=== PATIENT | female | born 1995 | race Two or more races ===

== ENCOUNTER 2017-01-20 12:38 | Emergency (ER) | payer OTHER ==
[2017-01-20 12:43] VITALS: RESP 18
--- NOTE | 2017-01-20 13:41 | EDPHY ---
HPI/HX/ROS/PE/MDM Narrative: CHIEF COMPLAINT: Cough, painful breathing HISTORY OF PRESENT ILLNESS: This patient is a 21 year old female complaining of left-sided chest pain onset yesterday afternoon. She has had a cold over the last week with cough, runny nose, and sore throat. She did have a fever for a few days, but this has since resolved. She has been coughing frequently, severely enough to vomit. Yesterday , she developed a sharp pain in her ribs just below her left breast. This is worse with cough or deep inspiration. She feels best leaning forward. She was evaluated at [facility] near the beginning of her illness and prescribed an inhaler, which has not meaningfully resolved her symptoms. She has taken 200mg Ibuprofen every 4 hours for pain relief. She denies personal or family history of blood clots. Nonsmoker. On oral contraceptives. No prolonged travel recently. She did receive a flu vaccine this year. No current fever, chills, shortness of breath, palpitations, abdominal pain, vomiting, diarrhea, urinary complaints, headache, lightheadedness. REVIEW OF SYSTEMS: Aside from elements discussed in the HPI, a comprehensive 10-point review of systems was reviewed and is negative. PAST MEDICAL HISTORY: Tonsillectomy. SOCIAL HISTORY: Student at [employer]. Nonsmoker. Friend at bedside. VITAL SIGNS: Reviewed by me. Heart rate 108, respiratory rate 18, O2 sat 100% GENERAL: Well-developed, well-nourished, resting comfortably in no respiratory distress. Occasional dry cough. HEENT: Atraumatic. Eyes: No icterus, no injection. Mouth: moist mucous membranes. Pharyngeal erythema. No lesions. Neck: supple with no adenopathy. LUNGS: Crackles/coarse breath sounds on left base. No wheezes. Faint crackles clear with deep inspiration. CHEST: Well localized area of tenderness just under the left breast. No crepitus. CARDIAC: Regular rate and rhythm, no rubs, murmurs or gallops. ABDOMEN: Soft, nontender, nondistended, bowel sounds normal. BACK: No CVA tenderness. EXTREMITIES: No trauma. No edema. Range of motion is normal throughout. NEURO: Alert and oriented, grossly nonfocal. SKIN: Warm and dry, no rash. PSYCHIATRIC: Normal mentation, no agitation. Portions of this note were transcribed by a medical reception. I personally performed a history, physical exam, medical decision making, and confirmed accuracy of information the transcribed note. ED Course: 21 year old female presents with cough and left-sided chest pain. Exam reveals crackles and coarse breath sounds in the left base, pharyngeal erythema. Plan for chest x-ray. Plan to administer 15mg IM Toradol for pain relief. Reviewed x-ray. No pneumothorax, no pneumomediastinum mediastinum. No evidence of pneumonia. Reassessed patient. Discussed imaging results. Plan to discharge home in good condition with prescriptions for Azithromycin, Vicodin, and Tessalon Perles. Follow up and return precautions discussed. The patient is comfortable with this plan. Suspect patient's chest discomfort which developed after several days of cold and coughing and is very pleuritic in nature may be related to musculoskeletal/ ribs ribs/muscle strain. Doubt pulmonary embolism. Initially tachycardic on arrival to triage by my examination heart rate is in 90s. Resting comfortably. Not tachypneic. Not hypoxic. Looks well. Crackles clear with deep inspiration. MDM: After history and physical examination, the differential for this patient's presenting complaint was considered, including but not limited to, bronchitis, pneumonia, pulmonary embolism, atelectasis, musculoskeletal pain, pleuritic pain , cracked rib, intracostal muscle sprain or strain, pleural inflammation, pericarditis. - Data Points Imaging: I viewed and interpreted images myself Medications Given: Discontinued Medications Ketorolac Tromethamine (Toradol) 15 mg IM EDNOW ONE Stop: 01/20/17 13:43 Last Admin: 01/20/17 13:59 Dose: 15 mg General Time Seen by Provider: 01/20/17 13:29 Initial Vital Signs: Initial Vital Signs Temperature (C) 36.7 C 01/20/17 12:39 Heart Rate 108 H 01/20/17 12:39 Respiratory Rate 18 01/20/17 12:39 Blood Pressure 142/97 H 01/20/17 12:39 O2 Sat (%) 100 01/20/17 12:39 O2 Delivery Mode Room Air Allergies/Adverse Reactions: No Known Allergies Allergy (Unverified 01/20/17 14:16) Home Medications: Medication Instructions Recorded AZITHROMYCIN [Z-PACK] 250 - 500 mg PO DAILY #6 tab 11/02/17 Benzonatate [Tessalon Pearles (RX)] 100 mg PO TID PRN #20 cap 01/20/17 Control Pills 01/20/17 Hydrocodone/APAP 5/325 [[place] 1 tab PO Q6H PRN #10 tab 01/20/17 5/325 (RX)] buPROPion [Wellbutrin 75mg (*)] 75 mg PO 01/20/17 lamoTRIgine [LamICTAL 100 MG (*)] 100 mg PO 01/20/17 Departure - Departure Disposition: Home, Routine, Self-Care Clinical Impression: Pleuritic chest pain, Cough Acute bronchitis Qualifiers: Bronchitis organism: unspecified organism Qualified Code(s): J20.9 - Acute bronchitis, unspecified Condition: Good Instructions: Acute Bronchitis (ED), Thoracic Pain (ED) Additional Instructions: 1. Take Azithromycin as prescribed. 2. Take ibuprofen as directed below as needed for pain. Take Vicodin as prescribed as needed for severe pain. Take Tessalon Perles as prescribed as needed for cough. 3. Follow up at [facility] or with your primary care physician for continued evaluation. 3. Return to the emergency department for high fever, uncontrollable cough, difficulty breathing, pain or swelling in your calves, changing or severe chest pain, or other worsening of condition. Adult Pain & Fever Control: We recommend Acetaminophen (Tylenol) and Ibuprofen (Motrin,Advil) for pain and fever control. When fever is high or pain severe, both drugs can be used at the same time, but at different intervals. Please note the time differences. Your dose is: Acetaminophen 650mg every 4 to 6 hours Ibuprofen 600mg every 6-8 hours with food Note: do not take Acetaminophen with Hydrocodone (Vicodin, Lortab) or Oxycodone (Percocet). These medications also contain Acetaminophen. No more than 3000mg of Acetaminophen should be taken in 24 hours (for an adult). Referrals: KARI HAZEL [Other] - As per Instructions [facility],. [Clinic] - As per Instructions Prescriptions: AZITHROMYCIN [Z-PACK] 250 - 500 mg PO DAILY #6 tab Benzonatate [Tessalon Pearles (RX)] 100 mg PO TID PRN #20 cap PRN Reason: Cough Hydrocodone/APAP 5/325 [[place] 5/325 (RX)] 1 tab PO Q6H PRN #10 tab PRN Reason: Pain Report Scribed for: Ce Mckinney Report Scribed by: Aixa Christina Date of Report: 01/20/17 Time of Report: 13:44
[2017-01-20] MEDS ORDERED: KETOROLAC 30 MG/1 ML SDV IM ONE ×2 (13:42)
[2017-01-20 14:46] VITALS: BP 139/85; PULSE 91; TEMP 98.2; O2SAT 97
== END 2017-01-20 14:51 | disposition home or self-care (01) ==
DX: J20.9 Acute bronchitis, unspecified (principal)
CPT/HCPCS: J1885